=== PATIENT | female | born 1955 | race Caucasian/White ===

== ENCOUNTER 2017-03-17 09:55 | Day surgery (SDC) | payer OTHER ==
[~2017-03-17] VITALS: Ht 172.7 cm; Wt 59.0 kg
[~2017-03-17 09:55] MED LIST: ANAPROX DS550 MG PO; LEVOTHYROXINE75 MCG PO; OMEGA-3100 MG PO
--- NOTE | 2017-03-17 12:31 | NUR ---
03/17/17 1231 Jerri Drew REPORT FROM ENDO STAFF.
--- NOTE | 2017-04-17 07:48 | OR ---
[facility] [address], [place] [address] Signed DATE OF PROCEDURE: 03/17/17 PREOPERATIVE DIAGNOSES History of tubulovillous adenoma of left colon in 2012. Redundant colon. POSTOPERATIVE DIAGNOSIS Normal colon to cecum except for scattered diverticula including hepatic flexure. PROCEDURE: Total colonoscopy to cecum. SURGEON: Shahid Orellana MD. ANESTHESIA Intravenous sedation with Propofol infusion, Shahid Larose CRNA. INDICATIONS This 61-year-old white woman is a patient Dr. Webb and underwent colonoscopy by me in 2012. She was noted to have a markedly elongated colon in poor fixation requiring more intravenous sedation medications in usual. She is also noted to have a relatively large sessile polyp, which was a tubulovillous adenoma. She is recommended to undergo surveillance colonoscopy based on those findings, understanding the risks of bleeding, infection, and perforation. Given her sedation tissue in the past, I have recommended Propofol infusional sedation, she agrees. FINDINGS The prep was excellent. Complete colonoscopy was undertaken to the cecum. The redundant colon was once again noted but with abdominal wall stabilization, passage of the scope to the cecum was accomplished safely and without undue delay. PROCEDURE IN DETAIL The patient was brought to the endoscopy suite and placed in lateral decubitus position. Given intravenous sedation by the bulk folder with full cardiopulmonary monitoring using Propofol infusional technique. After satisfactory sedation, digital rectal examination was performed and was found to be normal. An Olympus video colonoscope was passed in the rectum and manipulated throughout the colon. Abdominal wall stabilization was required once the transverse colon was obtained allowing the scope ultimately to pass to the cecum without problem. The ileocecal valve and appendiceal orifice were normal. The scope was withdrawn from that point. Careful inspection showed no sign of abnormality other than a few diverticula including some at the hepatic flexure. Withdrawal of scope more fully showed no evidence of abnormality in Electronically Signed By: SHAHID ORELLANA MD 04/17/17 0748 PATIENT NAME: JULIO CÉSAR GAONA OPERATIVE REPORT DATE OF : 53 PHYSICIAN: SHAHID ORELLANA MD REPORT #: [id number] REPORT IS CONFIDENTIAL AND NOT TO BE RELEASED WITHOUT AUTHORIZATION [facility] [address], [place] [address] Signed the left colon and sigmoid. No sign of recurrent or persistent polyp. Retroflexed view in the rectum was normal. Scope was removed. The patient was taken to recovery room in good condition. CONCLUDING DIAGNOSIS Minimal diverticular changes. No sign of recurrent polyp. PLAN Recommend repeat colonoscopy in 5-7 years sooner if clinically indicated. She will return to the ongoing care of Dr. Webb. MD TIFFANIE Epstein/Leta /[id number] cc: Migue Webb MD Electronically Signed By: SHAHID ORELLANA MD 04/17/17 0748 PATIENT NAME: JULIO CÉSAR GAONA OPERATIVE REPORT DATE OF : 53 PHYSICIAN: SHAHID ORELLANA MD REPORT #: [id number] REPORT IS CONFIDENTIAL AND NOT TO BE RELEASED WITHOUT AUTHORIZATION
== END 2017-03-17 13:15 | disposition home or self-care (01) ==
LOC: DS 09:55 → OPS 09:55 → DS 13:00 → OPS 13:00
PROVIDERS: Surgery
PROC: 0DJD8ZZ Inspection of Lower Intestinal Tract, Via Natural or Artificial Opening Endoscopic (ICD-10-PCS; principal; 2017-03-17 11:00)
DX: Z12.11 Encounter for screening for malignant neoplasm of colon (principal); E03.9 Hypothyroidism, unspecified; I49.3 Ventricular premature depolarization; Z86.010 Personal history of colon polyps; Z85.820 Personal history of malignant melanoma of skin
CPT/HCPCS: 00810; J2704; J7120